=== PATIENT | male | born 1965 | race Caucasian/White ===

== ENCOUNTER 2019-10-10 09:05 | Outpatient (CLI) | payer OTHER ==
--- NOTE | 2019-10-10 11:03 | RAD ---
PA AND LATERAL CHEST: Date: 10/10/19 HISTORY: Dyspnea. COMPARISON: 01/03/15. FINDINGS: The cardiac silhouette and pulmonary vasculature are within normal limits. The lungs remain clear. Ch est is overall stable compared to the prior exam. IMPRESSION: Stable chest without evidence of an acute cardiopulmonary process. POS: [facility]
== END 2019-10-10 09:06 | disposition home or self-care (01) ==
LOC: RAD 09:05
PROVIDERS: ATTEND Internal Medicine Critical Care Medicine
DX: R06.00 Dyspnea, unspecified (principal)
CPT/HCPCS: 71046